=== PATIENT | male | born 1995 | race Caucasian/White ===

== ENCOUNTER 2017-11-21 15:38 | Emergency (ER) | payer OTHER ==
[2017-11-21 15:58] VITALS: BP 113/73
[2017-11-21 16:34] LABS: MEAN CORPUSCULAR HEMOGLOBIN 26.2 pg (28.0-34.0); MEAN CORPUSCULAR VOLUME 84.1 fl (80.0-100.0)
[2017-11-21] MEDS ORDERED: 0.9 % SODIUM CHLORIDE 1,000 ML IV ONE (16:38)
[2017-11-21 16:45] LABS: BASOPHILS % 1 % (0-2); EOSINOPHILS % 1 % (0-7); MONOCYTES % 2 % (0-11); SEGMENTED NEUTROPHILS % 91 % (39-79); TOXIC GRANULATION PRESENT
[2017-11-21 16:46] LABS: eGFR (African) > 60; eGFR (Non-African) > 60
[2017-11-21] MEDS: 0.9 % SODIUM CHLORIDE 1,000 ML IV ONE (16:55)
[2017-11-21] MEDS: fentaNYL CITRATE/PF 100 MCG/ 2ML AMP IVP ONE (18:01)
[2017-11-21] MEDS: KETOROLAC TROMETHAMINE 30 MG/1ML VIAL IVP ONE (18:01)
--- NOTE | 2017-11-21 18:31 | ED Physician Documentation ---
General Adult - HISTORIAN Historian: patient, parent - HPI Stated Complaint: fever and pain Chief Complaint: General Adult Further Comments: yes (22 year old male patient presents with complaints of fever and right BKA leg pain. Parents report patient c/o increased pain today; took Gabapentin at 1400, has not used IR Oxycontin today.) - ROS CONST: fever EYES/ENT: none CVS/RESP: none GI/: none MS/SKIN/LYMPH: other (leg pain) NEURO/PSYCH: denies: headache, fainting, dizziness, tingling, numbness, difficulty walking, difficulty with speech, anxiety, depression, other - PAST HX Past History: none Other History: none Surgeries/Procedures: other (recent Right BKA) Allergies/Adverse Reactions: Allergies Allergy/AdvReac Type Severity Reaction Status Date / Time amoxicillin Allergy Verified 11/21/17 15:58 Home Medications: Ambulatory Orders Medication Instructions Recorded Cephalexin [Keflex] 500 mg PO QID #40 capsule 11/21/17 Cyclobenzaprine HCl 10 mg PO 11/21/17 Gabapentin [Gabapentin] 900 mg PO TID 11/21/17 Oxycodone HCl [Roxicodone] 10 mg PO BID 11/21/17 - SOCIAL HX Smoking History: non-smoker - FAMILY HX Family History: No - VITAL SIGNS Vital Signs: Vital Signs Temp Pulse Resp BP Pulse Ox 100.2 F H 136 H 16 113/73 11/21/17 15:44 11/21/17 15:44 11/21/17 15:44 11/21/17 15:44 Progress - Progress Progress: Rate pain 8/10 - took gabapentin at 1400, has not used Oxy IR today. Medicated for pain with toradol and Fentanyl in ER 1800 Mom states patient can take cephalosporin. Will given 1 dose Rocephin in ER and start on Keflex. Recommended follow up appointment tomorrow with surgeon. ED Results Lab/Radiology - Lab Results Lab Results: Lab Results 11/21/17 11/21/17 11/21/17 16:28 16:28 16:25 WBC 14.40 K/ul H K/ul (4.00-12.00) RBC 4.16 M/ul M/ul (3.90-5.20) Hgb 10.9 g/dL L g/dL (12.0-18.0) Hct 35.0 % L % (37.0-53.0) MCV 84.1 fl fl (80.0-100.0) MCH 26.2 pg L pg (28.0-34.0) MCHC 31.1 g/dL g/dL (30.0-36.0) RDW 14.5 % H % (11.3-14.3) Plt Count 391 K/mm3 K/mm3 (130-400) Seg Neutrophils % 91 % H % (39-79) Band Neutrophils % 1 % % (0-12) Lymphocytes % 4 % L % (16-50) Monocytes % 2 % % (0-11) Eosinophils % 1 % % (0-7) Basophils % 1 % % (0-2) Toxic Granulation Present Plt Morphology Comment Normal (NORMAL) RBC Morph Comment Normal (NORMAL) Sodium 135 mmol/L L mmol/L (136-145) Potassium 3.6 mmol/L mmol/L (3.5-5.1) Chloride 99 mmol/L mmol/L (98-107) Carbon Dioxide 24 mmol/L mmol/L (22-30) BUN 14 mg/dL mg/dL (9-20) Creatinine 0.70 mg/dL mg/dL (0.66-1.25) Estimated Creat Clear 235 Est GFR ( Amer) > 60 (60 - ) Est GFR (Non-Af Amer) > 60 (60 - ) Glucose 127 mg/dL H mg/dL (74-106) Lactate 1.4 U/L U/L (0.7-2.1) Calcium 9.4 mg/dL mg/dL (8.4-10.2) Total Bilirubin 0.5 mg/dL mg/dL (0.2-1.3) AST 14 U/L L U/L (15-46) ALT 30 U/L U/L (13-69) Alkaline Phosphatase 80 U/L U/L (38-126) Total Protein 8.2 g/dL g/dL (6.3-8.2) Albumin 4.4 g/dL g/dL (3.5-5.0) - Orders Orders: ED Orders Category Date Time Status Apply/change dressing NOW Care 11/21/17 17:49 Active Cleanse with NS and Chlorhexid 1T Care 11/21/17 17:[address] IV Lock 1T Care 11/21/17 15:56 Active BLOOD CULTURE Stat Lab 11/21/17 Ordered CBC/PLATELET/DIFF Stat Lab 11/21/17 16:28 Completed CMP Stat Lab 11/21/17 16:28 Completed LACTATE Stat Lab 11/21/17 16:25 Completed UA W/MICRO IF INDICATED Stat Lab 11/21/17 15:56 Ordered 0.9 % Sodium Chloride [Normal Saline] 1,000 ml Med 11/21/17 16:38 Discontinued IV .STK-MED 0.9 % Sodium Chloride [Normal Saline] 1,000 ml Med 11/21/17 16:37 Discontinued IV NOW Ketorolac Tromethamine [Toradol] Med 11/21/17 17:48 Discontinued 30 mg IVP NOW ONE cefTRIAXone SODIUM [Rocephin] Med 11/21/17 18:29 Once 1,000 mg IV NOW ONE fentaNYL CITRATE/PF [Duragesic] Med 11/21/17 17:48 Discontinued 50 mcg IVP NOW ONE General Adult Physical Exam - PHYSICAL EXAM GENERAL APPEARANCE: mild distress EENT: eye inspection normal, GUSTAVO RESPIRATORY: no resp distress, chest non-tender, breath sounds normal CVS: reg rate & rhythm, heart sounds normal, equal pulses, no murmur, no gallop , PMI nml, no JVD, no friction rub, 24 ABDOMEN: soft, no organomegaly, normal bowel sounds, no abdominal bruit, no distension SKIN: normal color, warm/dry, NR, INT, PAL, DR EXTREMITIES: non-tender, normal range of motion, no evidence of injury, no edema , other (Right BKA - incision with scant purulent drainage; mild hyperthermia; rates pain 8/10) NEURO: oriented X3, motor nml, sensation nml, mood/affect nml Discharge Clincal Impression: Cellulitis of leg without foot, right, Right leg pain Prescriptions: Cephalexin [Keflex] 500 mg PO QID #40 capsule Referrals: Brooke Coker MD [Primary Care Provider] - 2 Days Additional Instructions: Continue all current medications and dressing orders. concreting supervisor your antibiotic and start it tomorrow. Make follow up appointment with your doctor for tomorrow. Take your paperwork with your to the appointment. You may use tylenol 325mg 1-2 tabs every 4 hours as needed for fever or ibuprofen 2-3 tabs every 6 hours as needed for fever Use your Oxycontin IR for severe pain. Follow directions as prescribed. If you symptoms become worse, fever remains over 101 after treatment, or you pain in uncontrolled return to the ER. Condition: Stable Disposition: 01 HOME, SELF-CARE Decision to Admit: NO Decision Time: 18:39
[2017-11-21] MEDS: cefTRIAXone SODIUM 1 GM VIAL ONE (18:53)
[2017-11-22 08:45] LABS: APPEARANCE,URINE CLEAR (CLEAR); COLOR,URINE YELLOW (YELLOW); OCCULT BLOOD,URINE NEGATIVE (NEGATIVE); PH URINE 5.5 (5.0 - 8.0); UROBILINOGEN URINE 0.2 Eu (0.2-1.0)
== END 2017-11-21 19:31 | disposition home or self-care (01) ==
LOC: ED 15:38
DX: L03.115 Cellulitis of right lower limb (principal); M79.604 Pain in right leg
CPT/HCPCS: 80053; 81002; 83605; 85025; 87040; J0696; J1885; J3010; J7030; 96365; 96367; 96375; S1016